=== PATIENT | female | born 1995 | race Two or more races ===

== ENCOUNTER 2016-10-28 09:12 | Inpatient (IN) | payer MEDICAID ==
[~2016-10-28] VITALS: Ht 162.6 cm; Wt 81.6 kg
[2016-10-28] VITALS (8 sets, daily range): BP systolic 112–134; BP diastolic 70–85
[~2016-10-28 09:12] MED LIST: ACETAMINOPHEN-1 EAC1 ORAL; AMOXICILLIN500 MG ORAL; AUGMENTIN 875-1 EAC1 ORAL; IBUPROFEN600 MG ORAL; NEXAFED30 MG ORAL; PERMETHRIN60 GM TOPIC
[2016-10-28 10:19] LABS: APPEARANCE,URINE SLIGHTLY CLOUDY; KETONES,URINE NEGATIVE (NEGATIVE); LEUKOCYTE ESTERASE ,URINE 1+ (NEGATIVE); NITRITE,URINE NEGATIVE (NEGATIVE); PH,URINE 6 (4.5-8.0); PROTEIN,URINE NEGATIVE (NEGATIVE); UROBILINOGEN,URINE NORMAL MG/DL (0.0-1.0)
[2016-10-28] MEDS ORDERED: Ketorolac 30mg Inj IV ONE (10:30)
[2016-10-28] MEDS ORDERED: Morphine Sulfate 4mg/ml Inj IVP ONE ×3 (10:30→16:15)
[2016-10-28 10:31] LABS: BACTERIA,URINE FEW /HPF; SQUAMOUS EPITHELIAL CELL,UR FEW /LPF (NONE/OCC)
[2016-10-28 10:39] LABS: MEAN CORPUSCULAR HGB CONC 33.2 G/DL (32.0-36.0); MEAN CORPUSCULAR VOLUME 87 FL (80-99); MEAN PLATELET VOLUME 6.2 FL (6.5-10.1); PLATELET COUNT 403 K/UL (150-450); RED BLOOD COUNT 4.38 M/UL (4.20-5.40); RED CELL DISTRIBUTION WIDTH 10.7 % (11.6-14.8); WHITE BLOOD COUNT 18.7 K/UL (4.8-10.8)
--- NOTE | 2016-10-28 10:39 | Emergency Room Report ---
History of Present Illness General Chief Complaint: Pain Source: Patient Present Illness HPI 21 YOF with 2-3 days left sided intermittent spastic pain. History of kidney stones. Denies fever/chills, urinary complaints, fever/chills. States was at outside ER yesterday, had CTAP, labwork, was told she has "two" stones and that "they would pass." Took Rx [place] at home but not much relief in pain. has been taking Abx for "UTI" 4x a d ay but vomited it up, thinks it is keflex. Allergies: Coded Allergies: No Known Allergies (Unverified , 01/22/16) Patient History Past Medical History: none Past Surgical History: none Pertinent Family History: none Social History: Denies: alcohol use, drug use, smoking Last Menstrual Period: 10/15/16 Now: No : 0 Para: 0 Immunizations: UTD Reviewed Nursing Documentation: PMH: Agreed, PSxH: Agreed Nursing Documentation-PMH Past Medical History: No History, Except For Review of Systems All Other Systems: negative except mentioned in HPI Physical Exam Vital Signs Date Time Temp Pulse Resp B/P Pulse Ox O2 Delivery O2 Flow Rate FiO2 10/28/16 09:23 98.1 97 22 120/80 96 Room Air Sp02 EP Interpretation: reviewed, normal General Appearance: normal inspection, alert, GCS 15, non-toxic, mild distress Head: normocephalic, atraumatic Eyes: bilateral eye EOMI, bilateral eye PERRL ENT: normal ENT inspection, hearing grossly normal, normal voice Neck: normal inspection, full range of motion, supple, no bony tend Respiratory: normal inspection, lungs clear, normal breath sounds, no respiratory distress, no retraction, no wheezing Cardiovascular #1: regular rate, rhythm, no edema Gastrointestinal: normal inspection, normal bowel sounds, soft, no guarding, no hernia, other - Mild left sided abd ttp Genitourinary: CVA tenderness (L) Musculoskeletal: normal inspection, back normal, normal range of motion, Glo' s Sign negative Neurologic: normal inspection, alert, oriented x3, responsive, boom worker III-XII nml as tested, motor strength/tone normal, speech normal Psychiatric: normal inspection, judgement/insight normal, mood/affect normal Skin: normal inspection, normal color, no rash Medical Decision Making Diagnostic Impression: Primary Impression: Left sided abdominal pain Additional Impressions: EUNICE (acute kidney injury) Pyelonephritis ER Course Labs: Leuks 18. EUNICE. UA +LE. Ultrasound shows mild left hydro. Distended bladder. No jets seen. Could not get official read from inhouse Radiologist as reportedly had left at noon. Patient feels better s/p IV toradol/morphine States she urinated but only small amount I am really trying to avoid another CT as patient is young female in reproductive years; she herself does not want another CT scan Feels better but still in pain Nauseated so likely to unable to tolerate PO Abx at home and already failed Abx PO at home Patient ok for admission Endorsed to Dr Townsend at 227pm for med surg Last Vital Signs Date Time Temp Pulse Resp B/P Pulse Ox O2 Delivery O2 Flow Rate FiO2 10/28/16 09:23 98.1 97 22 120/80 96 Room Air Disposition: ADMITTED INPATIENT Condition: Serious Referrals: ZOEY PIERCE,REFERRING (PCP) VALERIA JIMENEZ M.D. Oct 28, 2016 10:39
[2016-10-28] MEDS ORDERED: cefTRIAXone 1 GM in NS 55 ML IVPB ONE (10:45)
[2016-10-28 10:48] LABS: ALBUMIN/GLOBULIN RATIO 1.3 (1.0-2.7); CALCIUM 9.2 mg/dL (8.6-10.2); CREATININE 1.5 mg/dL (0.5-0.9); GLOMERULAR FILTRATION RATE 44.3 mL/min (>60); TOTAL PROTEIN 6.7 g/dL (6.6-8.7)
[2016-10-28] MEDS ORDERED: NS 55 ML IV ONE (11:06)
[2016-10-28 11:12] LABS: BAND NEUTROPHILS % (MANUAL) 0 % (0-8); BASOPHILS % (MANUAL) 0 % (0-2); EOSINOPHILS % (MANUAL) 0 % (0-3); LYMPHOCYTES % (MANUAL) 4 % (20-45); NEUTROPHILS % (MANUAL) 87 % (45-75); PLATELET ESTIMATE ADEQUATE; PLATELET MORPHOLOGY NORMAL; TOTAL CELLS COUNTED 100
[2016-10-28] MEDS: Tamsulosin 0.4mg cap ORAL SCH (12:40)
[2016-10-28] MEDS ORDERED: TAMSULOSIN HCL0.4 MG ORAL (13:18)
[2016-10-28] MEDS ORDERED: NORCO 5-325 TA1 EAC1 ORAL (13:18)
[2016-10-28] MEDS ORDERED: CEPHALEXIN500 MG ORAL (13:18)
[2016-10-28] MEDS ORDERED: Norco 5mg/325mg tab ORAL PRN (20:30)
[2016-10-28] MEDS: Morphine Sulfate 2mg/ml Inj IVP PRN (21:54)
[2016-10-28] MEDS: D5 1/2NS 1,000 ML IV SCH (22:31)
[2016-10-28] MEDS: Heparin 5000 units/ml inj SUBQ SCH (22:33)
[2016-10-29] VITALS: BP 112/64
[2016-10-29] MEDS: Morphine Sulfate 2mg/ml Inj IVP PRN ×5 (02:05→20:02)
[2016-10-29 04:00] VITALS: BP 112/69
--- NOTE | 2016-10-29 06:39 | Consultation ---
DATE OF CONSULTATION: UROLOGY CONSULTATION: REASON FOR CONSULTATION: The patient is a 21-year-old female with left bobbi pain, found to have two left ureteral calculi. The CAT scan report from the previous CAT scan she had at [facility]. She is currently being admitted for symptomatic treatment. The patient has no history of previous stones. PAST MEDICAL HISTORY: The patient does not give any significant past medical history. PHYSICAL EXAMINATION: GENERAL: The patient is currently afebrile. VITAL SIGNS: Stable. ABDOMEN: Soft and nontender. BACK: No CVA tenderness. GENITOURINARY: Bladder is nontender. ASSESSMENT: My assessment of the patient is that the report of the CAT scan has two left ureteral calculi 2 mm in size and the patient needs admission for pain control. My recommendation is that this patient should be able to pass the stone that is symptomatic and should receive intravenous fluids as well as Flomax. As long as the patient is feeling better, the patient will be able to be treated as an outpatient and will likely not need any intervention while she is in the hospital. Justus Camacho DR: Geronimo JOB#: [id number] CC:
[2016-10-29 07:42] LABS: BASOPHILS % (AUTO) 0.5 % (0.0-2.0); EOSINOPHILS % (AUTO) 0.3 % (0.0-3.0); LYMPHOCYTES % (AUTO) 12.1 % (20.0-45.0); MEAN CORPUSCULAR HEMOGLOBIN 29.4 PG (27.0-31.0); MEAN CORPUSCULAR HGB CONC 33.7 G/DL (32.0-36.0); MEAN CORPUSCULAR VOLUME 87 FL (80-99); MEAN PLATELET VOLUME 6.2 FL (6.5-10.1); MONOCYTES % (AUTO) 7.3 % (1.0-10.0); NEUTROPHILS % (AUTO) 79.8 % (45.0-75.0); PLATELET COUNT 351 K/UL (150-450); RED CELL DISTRIBUTION WIDTH 11.1 % (11.6-14.8); WHITE BLOOD COUNT 14.6 K/UL (4.8-10.8)
[2016-10-29 07:54] LABS: CALCIUM 8.9 mg/dL (8.6-10.2); CREATININE 1.5 mg/dL (0.5-0.9); GLOMERULAR FILTRATION RATE 44.3 mL/min (>60); POTASSIUM 3.6 mEQ/L (3.4-4.9)
[2016-10-29 08:00] VITALS: BP 115/77
[2016-10-29] MEDS: Heparin 5000 units/ml inj SUBQ SCH ×2 (08:48→20:10)
--- NOTE | 2016-10-29 10:24 | Diagnostic Imaging Report ---
Indication:Abdominal pain Technique: Grayscale and duplex Doppler imaging of the abdomen performed. Comparison: None Findings: Echogenic foci noted in the liver suspicious for pneumobilia. The main portal vein is patent. Gallbladder is unremarkable. The pancreas is not seen. No biliary ductal dilatation is identified. There is a trace amount of ascites present. The right kidney appears unremarkable. CBD is 4 mm. Aorta is normal caliber as visualized. Spleen is normal in size. There is mild left hydronephrosis. There is a probable stone in the upper pole calyx of the left kidney. The urinary bladder is unremarkable. Impression: Probable stone in the upper pole left kidney nonobstructive. Mild left hydronephrosis is present which may be further evaluated with noncontrast CT. Pneumobilia suspected. Trace ascites
[2016-10-29] MEDS: cefTRIAXone 1 GM in D5W 55 ML IVPB SCH (11:18)
[2016-10-29 12:00] VITALS: BP 111/70
[2016-10-29] MEDS: Tamsulosin 0.4mg cap ORAL SCH (12:19)
[2016-10-29] MEDS: D5 1/2NS 1,000 ML IV SCH ×2 (13:10→20:02)
--- NOTE | 2016-10-29 13:50 | Urology Progress Note ---
Assessment/Plan Status: stable Assessment/Plan 21 yo female with renal colic, second episode. seems to have been undereducated. Ureteral stone is highly likely to pass, but patient needs to hydrate and take pain medication liberally. Patient assumed stones would pass in a few days since last ER visit, educated patient it could take up to 4 weeks. Needs to continue to hydrate and take pain medication and flomax liberally. Ultrasound unconcerning for minimal hydro. 1. liberal hydration 2. Flomax 0.4 mg x 1 month 2. Pain medication PO prn 3. strain urine 4. ok for discharge if able to eat and drink today Subjective Date patient seen: Oct 29, 2016 Time patient seen: 13:48 ROS Limited/Unobtainable: No Constitutional: Denies: chills, diaphoresis, fever, malaise, no symptoms, other , weakness HEENT: Denies: blurred vision, double vision, ear discharge, ear pain, eye pain , mouth pain, mouth swelling, no symptoms, nose congestion, nose pain, other, tearing, throat pain, throat swelling Cardiovascular: Denies: chest pain, edema, irregular heart rate, lightheadedness, no symptoms, other, palpitations, syncope Respiratory: Denies: SOB at rest, SOB with excertion, cough, no symptoms, orthopnea, other, shortness of breath, sputum, stridor, wheezing Gastrointestinal/Abdominal: Denies: abdomen distended, abdominal pain, black stools, blood in stool, constipated, diarrhea, difficulty swallowing, nausea, no symptoms, other, poor appetite, poor fluid intake, rectal bleeding, tarry stools, vomiting Genitourinary: Denies: burning, discharge, flank pain, frequency, hematuria, incontinence, no symptoms, other, pain, urgency Neurologic/Psychiatric: Denies: anxiety, depressed, emotional problems, headache, no symptoms, numbness, other, paresthesia, pre-existing deficit, seizure, tingling, tremors, weakness Endocrine: Denies: excessive sweating, flushing, increased hunger, increased thirst, increased urine, intolerance to cold, intolerance to heat, no symptoms, other, unexplained weight gain, unexplained weight loss Hematologic/Lymphatic: Denies: anemia, easy bleeding, easy bruising, no symptoms, other Allergies: Coded Allergies: No Known Allergies (Unverified , 01/22/16) Subjective feeling better. able to drink today. pain is better. Objective Last 24 Hour Vital Signs Date Time Temp Pulse Resp B/P Pulse Ox O2 Delivery O2 Flow Rate FiO2 10/29/16 12:00 97.9 91 18 111/70 100 Room Air 10/29/16 11:49 96.6 10/29/16 08:00 96.6 86 18 115/77 98 Room Air 10/29/16 04:00 98.9 90 19 112/69 100 Room Air 10/29/16 00:00 99.1 100 18 112/64 97 Room Air 10/28/16 22:56 98.1 10/28/16 20:00 100.2 116 16 115/70 98 Room Air 10/28/16 19:33 98.0 122 22 134/80 99 Room Air 10/28/16 19:32 98.0 99 21 130/79 99 Room Air 10/28/16 17:01 98.0 122 22 134/80 99 Room Air 10/28/16 16:36 98.0 10/28/16 15:00 99 30 131/82 99 Room Air 10/28/16 14:00 104 28 112/74 100 Room Air Intake and Output 10/28/16 10/29/16 19:00 07:00 Intake Total 1050 ml 1140 ml Balance 1050 ml 1140 ml Intake Oral 600 ml IV Total 1050 ml 540 ml # Voids 1 4 Laboratory Tests 10/29/16 06:30: White Blood Count 14.6H, Red Blood Count 4.00L, Hemoglobin 11.8L, Hematocrit 34.9L, Mean Corpuscular Volume 87, Mean Corpuscular Hemoglobin 29.4, Mean Corpuscular Hemoglobin Concent 33.7, Red Cell Distribution Width 11.1L, Platelet Count 351, Mean Platelet Volume 6.2L, Neutrophils (%) (Auto) 79.8H, Lymphocytes (%) (Auto) 12.1L, Monocytes (%) (Auto) 7.3, Eosinophils (%) (Auto) 0.3, Basophils (%) (Auto) 0.5, Sodium Level 139, Potassium Level 3.6, Chloride Level 99, Carbon Dioxide Level 26, Anion Gap 14, Blood Urea Nitrogen 13, Creatinine 1.5H, Estimat Glomerular Filtration Rate 44.3, Glucose Level 99, Calcium Level 8.9 Height (Feet): 5 Height (Inches): 4.00 Weight (Pounds): 180 General Appearance: no apparent distress Respiratory/Chest: lungs clear Abdomen: soft Bryson Fischer M.D. Oct 29, 2016 13:50
[2016-10-29 16:00] VITALS: BP 102/67
[2016-10-29] MEDS ORDERED: D5 1/2NS 1000ml IV ONE (16:56)
[2016-10-29 20:00] VITALS: BP 128/78
--- NOTE | 2016-10-29 21:08 | History and Physical Report ---
DATE OF ADMISSION: 10/28/2016 CHIEF COMPLAINT: Left flank pain. HISTORY OF PRESENT ILLNESS: This is a 21-year-old female, who presented to [place] emergency department complaining of left flank pain several days starting before presentation to the emergency department. The patient states she has history of kidney stones. PAST MEDICAL HISTORY: As mentioned, history of kidney stones. MEDICATIONS: None. ALLERGIES: No known allergies. FAMILY HISTORY: Unremarkable. SOCIAL HISTORY: She is nonsmoker and nondrinker. There is no history of illicit drug abuse. REVIEW OF SYSTEMS: HEENT: Hearing and eyesight are normal. Endocrine: She denies diabetes, thyroid, and adrenal problems. Respiratory: She denies shortness of breath, cough, or hemoptysis. Cardiovascular: She denies chest pain or palpitations. Gastrointestinal: No history of hematochezia, melena, hematemesis, diarrhea, or constipation. Genitourinary: She denies dysuria, frequency, or hematuria. Neurologic: No history of stroke, syncope, or Parkinson disease. PHYSICAL EXAMINATION: GENERAL: This is a young female, who is in no acute distress. VITAL SIGNS: Blood pressure is 111/70, pulse 91 and regular, respirations 20, and temperature 97.1 degrees. HEENT: The head is normocephalic and atraumatic. Pupils are equal, round, and reactive to light and accommodation consensually. NECK: Supple. Trachea midline. There was no lymphadenopathy or thyromegaly. LUNGS: Clear to auscultation and percussion. HEART: Regular rate and rhythm without rubs, murmurs, or gallops. ABDOMEN: Soft. Bowel sounds were active. EXTREMITIES: No clubbing, cyanosis, or edema. NEUROLOGIC: She is alert and oriented x4. Cranial nerves II through XII are intact. LABORATORY AND ANCILLARY DATA: On admission, CBC was 18,700, today 40,600. Serum chemistry, creatinine 1.5 yesterday and today. Urinalysis 2 to 4 RBCs. Abdominal ultrasound shows probable stone in the upper left pole of the kidney and nonobstructive mild left hydronephrosis. ASSESSMENT: Left renal colic. PLAN: 1. Pain control. 2. IV fluids. Virgen Major M.D. DR: ANYA JOB#: [id number] CC:
[2016-10-29] MEDS ORDERED: Zolpidem 5mg tab ORAL PRN (22:30)
[2016-10-30] VITALS: BP 111/65
[2016-10-30 04:00] VITALS: BP_SYST 104; BP_SYST 113; BP_DIAS 57; BP_DIAS 66
[2016-10-30 08:49] VITALS: BP 99/61
[2016-10-30] MEDS: Heparin 5000 units/ml inj SUBQ SCH ×2 (09:32→21:43)
[2016-10-30] MEDS: Tamsulosin 0.4mg cap ORAL SCH (11:12)
[2016-10-30] MEDS: cefTRIAXone 1 GM in D5W 55 ML IVPB SCH (11:12)
[2016-10-30 11:37] VITALS: BP 130/77
--- NOTE | 2016-10-30 14:36 | Nephrology Progress Note ---
Assessment/Plan Plan Acute Pyelo - IV Abx Renal Colic -IVF, Pain Control Check Labs tomorrow. Subjective Subjective Less Flank Pain Objective Objective Last 24 Hour Vital Signs Date Time Temp Pulse Resp B/P Pulse Ox O2 Delivery O2 Flow Rate FiO2 10/30/16 11:37 98.1 89 15 130/77 99 Room Air 10/30/16 08:49 97.0 84 15 99/61 98 Room Air 10/30/16 04:00 97.9 90 18 113/66 97 Room Air 10/30/16 00:00 97.7 82 17 111/65 96 Room Air 10/29/16 20:32 97.9 10/29/16 20:00 98.2 94 18 128/78 97 Room Air 10/29/16 16:00 98.1 98 18 102/67 98 Room Air Intake and Output 10/29/16 10/30/16 19:00 07:00 Intake Total 1115 ml 1000 ml Balance 1115 ml 1000 ml Intake Oral 640 ml 480 ml IV Total 475 ml 520 ml # Voids 3 7 Height (Feet): 5 Height (Inches): 4.00 Weight (Pounds): 180 Objective Cv RR Lungs CTA Abd SNT. BS+ No CV tenderness E no CCE RAVINDER POE Oct 30, 2016 14:36
[2016-10-30 20:00] VITALS: BP 125/46
[2016-10-30] MEDS: Norco 5mg/325mg tab ORAL PRN (21:42)
[2016-10-30] MEDS: D5 1/2NS 1,000 ML IV SCH (22:30)
[2016-10-31] VITALS: BP 118/76
[2016-10-31] MEDS: Norco 5mg/325mg tab ORAL PRN ×4 (01:45→20:47)
[2016-10-31 02:32] LABS: KETONES,URINE 3+ (NEGATIVE); LEUKOCYTE ESTERASE ,URINE 3+ (NEGATIVE); NITRITE,URINE NEGATIVE (NEGATIVE); PH,URINE 6 (4.5-8.0); PROTEIN,URINE NEGATIVE (NEGATIVE); UROBILINOGEN,URINE NORMAL MG/DL (0.0-1.0)
[2016-10-31 02:34] LABS: APPEARANCE,URINE SLIGHTLY CLOUDY
[2016-10-31 04:00] VITALS: BP 116/77
[2016-10-31 04:55] LABS: BACTERIA,URINE FEW /HPF; MUCUS,URINE FEW /LPF (NONE/OCC); SQUAMOUS EPITHELIAL CELL,UR MODERATE /LPF (NONE/OCC)
[2016-10-31 04:56] LABS: YEAST,URINE FEW /HPF
[2016-10-31 07:00] LABS: BASOPHILS % (AUTO) 0.4 % (0.0-2.0); EOSINOPHILS % (AUTO) 1.5 % (0.0-3.0); LYMPHOCYTES % (AUTO) 17.7 % (20.0-45.0); MEAN CORPUSCULAR HEMOGLOBIN 28.8 PG (27.0-31.0); MEAN CORPUSCULAR VOLUME 87 FL (80-99); MEAN PLATELET VOLUME 5.8 FL (6.5-10.1); MONOCYTES % (AUTO) 9.3 % (1.0-10.0); NEUTROPHILS % (AUTO) 71.1 % (45.0-75.0); PLATELET COUNT 421 K/UL (150-450); RED BLOOD COUNT 3.92 M/UL (4.20-5.40); RED CELL DISTRIBUTION WIDTH 10.7 % (11.6-14.8); WHITE BLOOD COUNT 11.4 K/UL (4.8-10.8)
[2016-10-31 07:18] LABS: ALBUMIN/GLOBULIN RATIO 1.2 (1.0-2.7); CALCIUM 9.7 mg/dL (8.6-10.2); CREATININE 1.3 mg/dL (0.5-0.9); GLOMERULAR FILTRATION RATE 52.2 mL/min (>60); POTASSIUM 4.2 mEQ/L (3.4-4.9); TOTAL PROTEIN 6.9 g/dL (6.6-8.7); URIC ACID 9.3 mg/dL (3.0-7.5)
[2016-10-31 08:34] VITALS: BP 122/73
[2016-10-31] MEDS: cefTRIAXone 1 GM in D5W 55 ML IVPB SCH (10:09)
[2016-10-31] MEDS: Heparin 5000 units/ml inj SUBQ SCH ×2 (10:11→20:48)
--- NOTE | 2016-10-31 10:46 | Diagnostic Imaging Report ---
Indication:Flank pain. Technique: Grayscale and duplex Doppler imaging of the kidneys performed. Comparison: Ultrasound abdomen 10/28/16 Findings: There is mild persistent left hydronephrosis. Consider evaluation with CT. The cause of the hydronephrosis is not elucidated on the current study. There is at least one nonobstructive stone demonstrated in the left kidney measuring about 9 mm. Renal contour, size, cortical echogenicity are normal I laterally. The right kidney and left kidney both measure between 11 and 12 CM in length. IVC and urinary bladder appear unremarkable. Impression: Persistent mild left hydronephrosis. Distal ureteral calculus could be present and it may be evaluated for with noncontrast CT. Nonobstructive stone in the left kidney also noted.
[2016-10-31 11:54] VITALS: BP 100/57
--- NOTE | 2016-10-31 14:57 | Nephrology Progress Note ---
Assessment/Plan Plan Acute Pyelo - IV Abx Renal Colic -IVF, Pain Control. Still has obstructive Sone (s) Patient with abnormal kidney function, needs retrograde +cysto. Capitated to [facility]? Transfer to [facility]. Subjective Subjective Still has Flank Pain Objective Objective Last 24 Hour Vital Signs Date Time Temp Pulse Resp B/P Pulse Ox O2 Delivery O2 Flow Rate FiO2 10/31/16 11:54 97.6 72 19 100/57 98 Room Air 10/31/16 08:34 97.7 68 19 122/73 99 Room Air 10/31/16 04:00 97.7 81 17 116/77 98 Room Air 10/31/16 00:00 97.3 77 18 118/76 97 Room Air 10/30/16 22:14 98.1 10/30/16 20:00 97.7 89 18 125/46 98 Room Air 10/30/16 16:48 98.1 Intake and Output 10/30/16 10/31/16 19:00 07:00 Intake Total 1195 ml 1280 ml Output Total 400 ml 300 ml Balance 795 ml 980 ml Intake Oral 900 ml 980 ml IV Total 295 ml 300 ml Output Urine Total 400 ml 300 ml # Voids 4 Laboratory Tests 10/31/16 02:10: Urine Color Yellow, Urine Appearance Slightly cloudy, Urine pH 6, Urine Specific [place] 1.015, Urine Protein Negative, Urine Glucose (UA) Negative, Urine Ketones 3+H, Urine Occult Blood 4+H, Urine Nitrite Negative, Urine Bilirubin Negative, Urine Urobilinogen Normal, Urine Leukocyte Esterase 3+H, Urine RBC 5-10H, Urine WBC 5-10H, Urine Squamous Epithelial Cells ModerateH, Urine Bacteria Few, Urine Mucus FewH, Urine Yeast FewH 10/31/16 05:55: White Blood Count 11.4H, Red Blood Count 3.92L, Hemoglobin 11.3L, Hematocrit 34.1L, Mean Corpuscular Volume 87, Mean Corpuscular Hemoglobin 28.8, Mean Corpuscular Hemoglobin Concent 33.0, Red Cell Distribution Width 10.7L, Platelet Count 421, Mean Platelet Volume 5.8L, Neutrophils (%) (Auto) 71.1, Lymphocytes (%) (Auto) 17.7L, Monocytes (%) (Auto) 9.3, Eosinophils (%) (Auto) 1.5, Basophils (%) (Auto) 0.4, Sodium Level 137, Potassium Level 4.2, Chloride Level 96L, Carbon Dioxide Level 27, Anion Gap 14, Blood Urea Nitrogen 10, Creatinine 1.3H, Estimat Glomerular Filtration Rate 52.2, Glucose Level 87, Uric Acid 9.3H, Calcium Level 9.7, Total Bilirubin 0.3, Aspartate Amino Transf ( AST/SGOT) 13, Alanine Aminotransferase (ALT/SGPT) 12, Alkaline Phosphatase 74, Total Protein 6.9, Albumin 3.8, Globulin 3.1, Albumin/Globulin Ratio 1.2 Height (Feet): 5 Height (Inches): 4.00 Weight (Pounds): 180 Objective Cv RR Lungs CTA Abd SNT. BS+ No CV tenderness E no CCE RAVINDER POE Oct 31, 2016 14:57
[2016-10-31 15:59] VITALS: BP 124/79
[2016-10-31] MEDS: D5 1/2NS 1,000 ML IV SCH (16:12)
[2016-10-31 19:00] VITALS: BP 118/79
[2016-11-01] VITALS: BP 107/68
[2016-11-01 04:00] VITALS: BP 118/72
[2016-11-01] MEDS: D5 1/2NS 1,000 ML IV SCH ×2 (07:50→12:09)
[2016-11-01 08:16] VITALS: BP 121/72
[2016-11-01] MEDS: Heparin 5000 units/ml inj SUBQ SCH (08:52)
[2016-11-01 12:15] VITALS: BP 121/76
[2016-11-01] MEDS: cefTRIAXone 1 GM in D5W 55 ML IVPB SCH (12:18)
[2016-11-01 16:00] VITALS: BP 122/79
[2016-11-01] MEDS: Norco 5mg/325mg tab ORAL PRN (16:08)
[2016-11-01] MEDS ORDERED: D5 1/2NS 1000ml IV ONE (16:44)
--- NOTE | 2016-11-02 14:29 | Discharge Summary ---
Discharge Summary Hospital Course Date of Admission Oct 28, 2016 at 14:17 Date of Discharge Nov 01, 2016 at 16:45 Admitting Diagnosis Pyelonephritis, Kidney Stone HPI Brigette Cartwright is a 21 year old female who was admitted on Oct 28, 2016 at 14:17 for Pyelonephrities, Kidney Stones Hospital Course [id number] Discharge Discharge Disposition Patient was discharged to Acute Care Facility(02) Discharge Diagnoses: Svitlana El NP Nov 02, 2016 14:29
--- NOTE | 2016-11-03 01:28 | Discharge Summary 2 SIG ---
DATE OF ADMISSION: 10/28/2016 DATE OF DISCHARGE: 11/01/2016 TOUR PRODUCTION SUPERVISOR: Bryson Fischer M.D. BRIEF HOSPITAL COURSE: The patient is a 21-year-old female, who presented to [place] complaining of left flank pain that started several days and states that she has a history of kidney stones. On admission, creatinine was 1.5. An abdominal ultrasound showed probable stone in the upper left pole of the kidney with a nonobstructive mild left hydronephrosis . She was admitted for IV hydration and pain control. She was seen by Urology. CAT scan imaging showed two left ureteral calculi 2 mm in size. The patient may be able to pass the stone with IV hydration and Flomax and educated it could take up to 4 weeks. Need to continue with hydration and pain medication and Flomax liberally. She was eventually advised need for retrograde cystoscopy and was transferred to a [facility]. FINAL DIAGNOSES: 1. Acute pyelonephritis. 2. Renal colic. 3. Obstructive kidney stone. Virgen Major M.D. I have been assigned to dictate discharge summary on this account and I was not involved in the patient's management. Svitlana El N.P. DR: SHAAN JOB#: [id number] CC: RONALD
== END 2016-11-01 16:45 | disposition short-term general hospital (02) | DRG 463 ==
LOC: EMR 10:07 → 4E 14:17 → EDBEDREQ 19:06 → 4E 10-29 19:43
DX: N10 Acute pyelonephritis (principal); N20.1 Calculus of ureter
CPT/HCPCS: 36415; 76700; 76775; 80048; 80053; 81001; 81003; 81025; 83690; 84550; 85007; 85025; 87086; J2405

== ENCOUNTER 2019-11-01 03:48 | Emergency (ER) | payer MEDICAID ==
[~2019-11-01] VITALS: Ht 167.6 cm; Wt 85.7 kg
[~2019-11-01 03:48] MED LIST changes: +CEPHALEXIN500 MG ORAL; +NORCO 5-325 TA1 EAC1 ORAL; +TAMSULOSIN HCL0.4 MG ORAL
[2019-11-01 04:00] VITALS: BP 104/56
--- NOTE | 2019-11-01 04:04 | NUR ---
ER Nurse Note: Pt walked in c/o LT chest pain that radiates to her LT arm since 10/31. Pt denies cardiac hx. Pt denies trauma but admited to heavy lifting. Pt stated 10/10 sharp pain. Pt stated nausea. Will continue to monitor.
--- NOTE | 2019-11-01 04:11 | Emergency Room Report ---
History of Present Illness General Chief Complaint: Chest Pain Source: Patient Present Illness HPI 24-year-old female with no past medical history. She presents with complaint of chest pain. Pain is left-sided. Onset 2 days ago. She said she had some pain at night. And when she woke up it was more painful. Pain to the left side going down the left arm. Worse with movement. Worse with inspiration. No fever or chills. [place] nauseous. Movement made it worse. Rest made it better. Denies exertional component. Denies any diaphoresis. No shortness of breath. No calf tenderness. Not take anything for it. No control. No family history of DVT. Pain is 8 out of 10. Allergies: Coded Allergies: No Known Allergies (Unverified , 01/22/16) Patient History Past Medical History: none, see triage record, old chart reviewed Past Surgical History: none Pertinent Family History: none Social History: Denies: smoking Last Menstrual Period: 09/23/2019 Now: No Immunizations: other Reviewed Nursing Documentation: PMH: Agreed; PSxH: Agreed Nursing Documentation-PMH Past Medical History: No Stated History Hx Cardiac Problems: No Hx Cancer: No Hx Gastrointestinal Problems: No Hx Neurological Problems: No Review of Systems Eye: Denies: eye pain, blurred vision ENT: Denies: ear pain, nose congestion, throat swelling Respiratory: Denies: cough, shortness of breath Cardiovascular: Reports: chest pain; Denies: palpitations Gastrointestinal: Denies: abdominal pain, diarrhea, nausea, vomiting Musculoskeletal: Denies: back pain, joint pain Skin: Denies: rash Neurological: Denies: headache, numbness Endocrine: Denies: increased thirst, increased urine Hematologic/Lymphatic: Denies: easy bruising All Other Systems: negative except mentioned in HPI Physical Exam Vital Signs Date Time Temp Pulse Resp B/P (MAP) Pulse Ox O2 Delivery O2 Flow Rate FiO2 11/01/19 03:51 98.2 81 16 104/56 (72) 99 Room Air Vitals normal Sp02 EP Interpretation: reviewed, normal General Appearance: well appearing, no apparent distress, alert Head: normocephalic, atraumatic Eyes: bilateral eye PERRL, bilateral eye EOMI ENT: hearing grossly normal, normal pharynx Neck: full range of motion, supple, no meningismus Respiratory: chest non-tender, lungs clear, normal breath sounds, other - Pain with palpation of left chest Cardiovascular #1: regular rate, rhythm, no murmur Gastrointestinal: normal bowel sounds, non tender, no mass, no organomegaly, no bruit, non-distended Musculoskeletal: back normal, normal range of motion, gait/station normal Psychiatric: mood/affect normal Medical Decision Making Diagnostic Impression: Primary Impression: Chest pain Qualified Codes: R07.9 - Chest pain, unspecified ER Course pt presents with cp for 2 days. pain is reproducible and worse with movement. EKG normal and trop neg. There was a problem with lab being unable to run DDimer. Therefore CT chest was done. result pending. If neg, will dc home. No e/ o ACS, dissection, pneumonia to name a few. EKG Diagnostic Results Rate: normal Rhythm: NSR ST Segments: no acute changes Rhythm Strip Diag. Results EP Interpretation: yes Rate: 70 Rhythm: NSR, no PVC's, no ectopy Chest X-Ray Diagnostic Results Chest X-Ray Diagnostic Results : Chest X-Ray Ordered: Yes # of Views/Limited/Complete: 1 View Indication: Chest Pain Interpretation: no consolidation, no effusion, no pneumothorax, no acute cardiopulmonary disease Impression: No acute disease Electronically Signed by: Tree Galdamez MD CT/MRI/US Diagnostic Results CT/MRI/US Diagnostic Results : Imaging Test Ordered: CT cheset Impression Read by radiologist. neg Last Vital Signs Date Time Temp Pulse Resp B/P (MAP) Pulse Ox O2 Delivery O2 Flow Rate FiO2 11/01/19 04:00 98.2 80 16 104/56 99 Room Air Status: improved Disposition: HOME, SELF-CARE Condition: Stable Scripts Ibuprofen* (MOTRIN*) 600 Mg Tablet 600 MG ORAL THREE TIMES A DAY, #30 TAB 0 Refills Prov: Tree Galdamez MD 11/01/19 Patient Instructions: Nonspecific Chest Pain Additional Instructions: Follow-up with your doctor in 7 days. Return if symptoms worsen. Tree Galdamez MD Nov 01, 2019 04:11
[2019-11-01] MEDS ORDERED: Ketorolac 30mg Inj IV ONE (04:15)
[2019-11-01 04:35] LABS: APPEARANCE,URINE CLEAR; BILIRUBIN, URINE NEGATIVE (NEGATIVE); COLOR,URINE PALE YELLOW; GLUCOSE, URINE (UA) NEGATIVE (NEGATIVE); HEMATOCRIT 38.3 % (37.0-47.0); HEMOGLOBIN 13.1 G/DL (12.0-16.0); KETONES,URINE NEGATIVE (NEGATIVE); LEUKOCYTE ESTERASE ,URINE NEGATIVE (NEGATIVE); LYMPHOCYTES % (AUTO) 28.2 % (20.0-45.0); MEAN CORPUSCULAR VOLUME 87 FL (80-99); MONOCYTES % (AUTO) 8.2 % (1.0-10.0); NEUTROPHILS % (AUTO) 60.6 % (45.0-75.0); NITRITE,URINE NEGATIVE (NEGATIVE); PH,URINE 5 (4.5-8.0); PLATELET COUNT 367 K/UL (150-450); PROTEIN,URINE NEGATIVE (NEGATIVE); RED BLOOD COUNT 4.41 M/UL (4.20-5.40); RED CELL DISTRIBUTION WIDTH 10.9 % (11.6-14.8); UROBILINOGEN,URINE NORMAL MG/DL (0.0-1.0); WHITE BLOOD COUNT 11.6 K/UL (4.8-10.8)
[2019-11-01 04:44] LABS: ANION GAP 12 mmol/L (5-15); BLOOD UREA NITROGEN 14 mg/dL (7-18); CALCIUM 9.2 MG/DL (8.5-10.1); CARBON DIOXIDE 25 MMOL/L (21-32); CHLORIDE 106 MMOL/L (98-107); CREATININE 0.7 MG/DL (0.55-1.30); POTASSIUM 4.2 MMOL/L (3.5-5.1); SODIUM 143 MMOL/L (136-145)
--- NOTE | 2019-11-01 05:07 | Diagnostic Imaging Report ---
EXAM: XR Chest, 1 View CLINICAL HISTORY: CP TECHNIQUE: Frontal view of the chest. COMPARISON: No relevant prior studies available. FINDINGS: Lungs: Unremarkable. No consolidation. Pleural space: Unremarkable. No pneumothorax. Heart: Unremarkable. No cardiomegaly. Mediastinum: Unremarkable. Bones/joints: Unremarkable. IMPRESSION: Normal chest x-ray.
[2019-11-01] MEDS ORDERED: Omnipaque 350 100ml vial INJ PRN (05:30)
[2019-11-01 05:46] VITALS: BP 101/60
--- NOTE | 2019-11-01 05:55 | NUR ---
ER Nurse Note: All orders completed per ERMD orders. SLIV LT AC; patent. Blood and urine collected. Meds given; pt stated pain is 6/10; meds effective without reactions. Pt taken to CT. All safety measures met; will continue to montior.
[2019-11-01] MEDS ORDERED: IBUPROFEN600 MG ORAL (06:16)
[2019-11-01] MEDS ORDERED: Morphine Sulfate 4mg/ml Inj (IV USE ONLY) IVP ONE (06:30)
--- NOTE | 2019-11-01 06:36 | Diagnostic Imaging Report ---
EXAM: CT Angiography Chest With Intravenous Contrast CLINICAL HISTORY: CP TECHNIQUE: Axial computed tomographic angiography images of the chest with intravenous contrast using pulmonary embolism protocol. CTDI is 97.5 mGy and DLP is 246.5 mGy-cm. One or more of the following dose reduction techniques were used: automated exposure control, adjustment of the mA and/or kV according to patient size, use of iterative reconstruction technique. MIP reconstructed images were created and reviewed. COMPARISON: None. FINDINGS: Pulmonary arteries: Suboptimal exam for evaluation of pulmonary embolus due to poor opacification of the pulmonary arteries with contrast. Within the limits of the exam, enhancement of the aorta and vascular structures are normal. Aorta: No acute findings. No thoracic aortic aneurysm. Lungs: Unremarkable. No mass. No consolidation. Pleural space: Unremarkable. No significant effusion. No pneumothorax. Heart: Unremarkable. No cardiomegaly. No significant pericardial effusion. No evidence of RV dysfunction. Bones/joints: No acute fracture. No dislocation. Soft tissues: Unremarkable. Lymph nodes: Unremarkable. No enlarged lymph nodes. IMPRESSION: 1. CT chest within normal limits. No acute process identified. 2. Limited exam for evaluation of pulmonary embolus as described.
[2019-11-01] MEDS ORDERED: Acetaminophen 500mg (ES) tab ORAL ONE (07:00)
[2019-11-01 07:02] VITALS: BP 106/68
[2019-11-01 07:10] VITALS: BP 106/68
--- NOTE | 2019-11-01 07:10 | NUR ---
ED Nurse Note: Pt cleared by health care Provider for discharge. DC instructions/prescription was given and explained to pt and verbalized understanding of teachings. All medical deviecs such as ID band and IV removed. Pt is AAO x4, ambulatory and left with all personal belongings.
== END 2019-11-01 07:10 | disposition home or self-care (01) ==
LOC: EMR 04:11
DX: R07.9 Chest pain, unspecified (principal)
CPT/HCPCS: 36415; 71045; 71275; 80048; 81003; 81025; 84484; 85025; 85379; 93005; 96361; 96374; 96375; 96376; J1885; J2270; J2405; J7030; Q9967; Z7502; 99284

== ENCOUNTER 2019-11-03 23:02 | Emergency (ER) | payer MEDICAID ==
[~2019-11-03] VITALS: Ht 167.6 cm; Wt 85.7 kg
--- NOTE | 2019-11-03 23:17 | NUR ---
ED Nurse Note: pt ambulated to ED from home c/o 10/10 L arm pain tingling, denies trauma or injury. Pain has been intermittent for several weeks. ERMD at bedside, pt tachy at 150's, placed on cadd drafter
[2019-11-03] MEDS ORDERED: Ketorolac 30mg Inj IV ONE (23:30)
[2019-11-03 23:42] VITALS: BP 128/77
[2019-11-03 23:55] LABS: BASOPHILS % (AUTO) 0.9 % (0.0-2.0); EOSINOPHILS % (AUTO) 2.9 % (0.0-3.0); HEMATOCRIT 36.4 % (37.0-47.0); HEMOGLOBIN 12.9 G/DL (12.0-16.0); LYMPHOCYTES % (AUTO) 29.1 % (20.0-45.0); MEAN CORPUSCULAR VOLUME 85 FL (80-99); MONOCYTES % (AUTO) 9.8 % (1.0-10.0); NEUTROPHILS % (AUTO) 57.3 % (45.0-75.0); PLATELET COUNT 367 K/UL (150-450); RED BLOOD COUNT 4.28 M/UL (4.20-5.40); RED CELL DISTRIBUTION WIDTH 10.5 % (11.6-14.8); WHITE BLOOD COUNT 11.7 K/UL (4.8-10.8)
--- NOTE | 2019-11-04 00:07 | Emergency Room Report ---
History of Present Illness General Chief Complaint: Upper Extremity Injury Source: Patient Present Illness HPI Patient is a 24-year-old female presents after increased left-sided shoulder pain. Reports having pain worse with movement. Denies any recent trauma. Had previously been seen at this facility and had CT angiogram of the chest which did not show any evidence of intrathoracic pathology. Denies any fever. Denies any other locations of pain. No prior cardiac history. Allergies: Coded Allergies: No Known Allergies (Unverified , 01/22/16) Patient History Past Medical History: see triage record Past Surgical History: none Pertinent Family History: none Last Menstrual Period: 09/2019 Nursing Documentation-[facility] Hx Cardiac Problems: No Hx Cancer: No Hx Gastrointestinal Problems: No Hx Neurological Problems: No Review of Systems All Other Systems: negative except mentioned in HPI Physical Exam Vital Signs Date Time Temp Pulse Resp B/P (MAP) Pulse Ox O2 Delivery O2 Flow Rate FiO2 11/03/19 23:07 97.9 178 18 128/77 (94) 97 Room Air Sp02 EP Interpretation: reviewed, normal General Appearance: normal inspection, well appearing, no apparent distress, alert, GCS 15 Head: atraumatic ENT: normal ENT inspection, hearing grossly normal, normal voice Neck: normal inspection, full range of motion, supple, no bony tend Respiratory: normal inspection, lungs clear, normal breath sounds, no respiratory distress, no retraction, no wheezing Cardiovascular #1: regular rate, rhythm, no edema Gastrointestinal: normal inspection, normal bowel sounds, non tender, soft, no guarding, no hernia Genitourinary: no CVA tenderness Musculoskeletal: normal inspection, back normal, other - decreased ROM left shoulder, deltoid tenderness Neurologic: alert, motor strength/tone normal, event crew technician III-XII nml as tested, oriented x3, responsive, speech normal, normal inspection Psychiatric: normal inspection, judgement/insight normal, mood/affect normal Medical Decision Making Diagnostic Impression: Primary Impression: Bursitis ER Course Patient present for left shoulder pain. Differential diagnosis includes not limited to dislocation, fracture, subluxation, arthritis among others. Patient has a benign exam and does not appear to require any imaging or laboratory testing at this time. Patient was given IV fluids as well as IV Toradol. She was noted to have some improvement over time. Patient appears to be stable for outpatient management. Extremity appears to be warm and well perfused. Pulses are equal.Extremity showed no evidence of acute fracture. Patient a recent CT imaging which was noted to be negative. Does not have any erythema or significant warmth over the shoulder joint consistent with septic joint. The patient is advised to follow up with primary care doctor in 1-2 days. Patient is advised to return if any worsening condition or if any changes in status that are concerning. This report is dictated with [employer] derrick barge operator software which may occasionally lead to discrepancies related to use of this software. Labs Test 11/03/19 23:40 White Blood Count 11.7 K/UL (4.8-10.8) Red Blood Count 4.28 M/UL (4.20-5.40) Hemoglobin 12.9 G/DL (12.0-16.0) Hematocrit 36.4 % (37.0-47.0) Mean Corpuscular Volume 85 FL (80-99) Mean Corpuscular Hemoglobin 30.1 PG (27.0-31.0) Mean Corpuscular Hemoglobin Concent 35.3 G/DL (32.0-36.0) Red Cell Distribution Width 10.5 % (11.6-14.8) Platelet Count 367 K/UL (150-450) Mean Platelet Volume 5.2 FL (6.5-10.1) Neutrophils (%) (Auto) 57.3 % (45.0-75.0) Lymphocytes (%) (Auto) 29.1 % (20.0-45.0) Monocytes (%) (Auto) 9.8 % (1.0-10.0) Eosinophils (%) (Auto) 2.9 % (0.0-3.0) Basophils (%) (Auto) 0.9 % (0.0-2.0) Sodium Level 143 MMOL/L (136-145) Potassium Level 3.5 MMOL/L (3.5-5.1) Chloride Level 105 MMOL/L (98-107) Carbon Dioxide Level 27 MMOL/L (21-32) Anion Gap 11 mmol/L (5-15) Blood Urea Nitrogen 10 mg/dL (7-18) Creatinine 0.8 MG/DL (0.55-1.30) Estimat Glomerular Filtration Rate > 60 mL/min (>60) Glucose Level 90 MG/DL (74-106) Calcium Level 9.2 MG/DL (8.5-10.1) Total Bilirubin 0.2 MG/DL (0.2-1.0) Aspartate Amino Transf (AST/SGOT) 17 U/L (15-37) Alanine Aminotransferase (ALT/SGPT) 28 U/L (12-78) Alkaline Phosphatase 79 U/L (46-116) Troponin I 0.000 ng/mL (0.000-0.056) Total Protein 7.2 G/DL (6.4-8.2) Albumin 3.7 G/DL (3.4-5.0) Globulin 3.5 g/dL Albumin/Globulin Ratio 1.1 (1.0-2.7) Lipase 197 U/L (73-393) EKG Diagnostic Results Rate: normal Rhythm: NSR ST Segments: no acute changes Last Vital Signs Date Time Temp Pulse Resp B/P (MAP) Pulse Ox O2 Delivery O2 Flow Rate FiO2 11/03/19 23:42 97.9 96 18 128/77 97 Room Air Status: improved Disposition: HOME, SELF-CARE Condition: Stable Scripts Prednisone* (PREDNISONE*) 20 Mg Tablet 40 MG ORAL DAILY, #10 TAB Prov: Pedro Toussaint MD 11/04/19 Pedro Toussaint MD Nov 04, 2019 00:07
[2019-11-04 00:15] LABS: ANION GAP 11 mmol/L (5-15); BLOOD UREA NITROGEN 10 mg/dL (7-18); CALCIUM 9.2 MG/DL (8.5-10.1); CARBON DIOXIDE 27 MMOL/L (21-32); CHLORIDE 105 MMOL/L (98-107); CREATININE 0.8 MG/DL (0.55-1.30); POTASSIUM 3.5 MMOL/L (3.5-5.1); SODIUM 143 MMOL/L (136-145)
[2019-11-04 00:19] LABS: ALANINE AMINOTRANSFERASE 28 U/L (12-78); ALBUMIN 3.7 G/DL (3.4-5.0); ALBUMIN/GLOBULIN RATIO 1.1 (1.0-2.7); ALKALINE PHOSPHATASE 79 U/L (46-116); ASPARTATE AMINO TRANSFERASE 17 U/L (15-37); BILIRUBIN,TOTAL 0.2 MG/DL (0.2-1.0)
[2019-11-04] MEDS ORDERED: PREDNISONE20 MG ORAL (01:22)
--- NOTE | 2019-11-04 01:30 | NUR ---
ED Nurse Note: Pt resting in bed with eyes closed, non-labored breathing, pt states pain is lessened, will continue to monitor
[2019-11-04 02:00] VITALS: BP 128/77
--- NOTE | 2019-11-04 02:00 | NUR ---
ER DISCHARGE NOTE: Patient is cleared to be discharged per ERMD, pt is aox4, on room air, with stable vital signs. pt was given dc and prescription instructions, pt was able to verbalize understanding, pt id band and iv site removed without complications. pt is able to ambulate with steady gait. pt took all belongings.
--- NOTE | 2019-11-04 11:47 | Diagnostic Imaging Report ---
Indication: left shoulder pain Findings: 3 views of the left shoulder were obtained. Alignment of the left shoulder is normal. No acute fracture is identified. Soft tissues are unremarkable. Impression: No acute injury
--- NOTE | 2019-11-04 11:47 | Diagnostic Imaging Report ---
Indication: Dyspnea Comparison: 11/01/2019 A single view chest radiograph was obtained. Findings: Cardiomediastinal appearance is within normal limits for age. The lungs are clear. Pulmonary vascularity is appropriate. The diaphragmatic contour is smooth and costophrenic angles are sharp. No pleural effusions are identified. The bones are unremarkable. Impression: No acute findings
== END 2019-11-04 02:00 | disposition home or self-care (01) ==
LOC: EMR 23:59
DX: M71.9 Bursopathy, unspecified (principal)
CPT/HCPCS: 36415; 71045; 73030; 80053; 83690; 84484; 85025; 93005; 96361; 96374; J1885; J7030; J7512; Z7502; 99284

== ENCOUNTER 2019-12-09 00:35 | Emergency (ER) | payer MEDICAID ==
[~2019-12-09] VITALS: Ht 165.1 cm; Wt 83.0 kg
[~2019-12-09 00:35] MED LIST changes: +PREDNISONE20 MG ORAL
[2019-12-09 00:54] VITALS: BP 125/88
--- NOTE | 2019-12-09 00:54 | NUR ---
ED Nurse Note: Pt ambulated to ED from home c/o epigastric pain, R ear pain and headache x3days, denies cough, fever/congestion, pain is 9/10, pt states she thinks its anxiety. VSS. Pt is A&Ox4. Pt placed on nurse monitoring.
[2019-12-09] MEDS ORDERED: Lidocaine 2% Visc 15ml soln ORAL ONE (01:15)
[2019-12-09] MEDS ORDERED: Mylanta II UD 30ml ORAL ONE (01:15)
[2019-12-09] MEDS ORDERED: Dicyclomine HCl 10mg/5ml oral soln ORAL ONE (01:15)
[2019-12-09] MEDS ORDERED: AMOXICILLIN500 MG ORAL (01:23)
[2019-12-09] MEDS ORDERED: FAMOTIDINE20 MG ORAL (01:23)
[2019-12-09 01:50] VITALS: BP 122/79
--- NOTE | 2019-12-09 01:50 | NUR ---
ER DISCHARGE NOTE: Patient is cleared to be discharged per ERMD, pt is aox4, on room air, with stable vital signs. pt was given dc and prescription instructions, pt was able to verbalize understanding, pt id band removed. pt is able to ambulate with steady gait. pt took all belongings.
--- NOTE | 2019-12-09 03:23 | Emergency Room Report ---
History of Present Illness General Chief Complaint: Abdominal Pain Source: Patient Present Illness HPI 24-year-old female presents ED for evaluation. Complaining of right ear pain. Also complaining of abdominal pain with nausea and vomiting. Pain is epigastric , burning, 6 out of 10, nonradiating. Notes history of gastritis. Denies fevers or chills. Denies cough. Denies sick contacts or recent travel. No other aggravating relieving factors. Denies any other associated symptoms Allergies: Coded Allergies: No Known Allergies (Unverified , 01/22/16) COVID-19 Screening Contact w/high risk pt: No Recent Travel to affected area: No Experienced COVID-19 symptoms?: No Patient History Past Medical History: psych hx Past Surgical History: none Pertinent Family History: none Social History: Denies: smoking, alcohol use, drug use Last Menstrual Period: 11/30/19 Now: No : 0 Para: 0 Immunizations: UTD Reviewed Nursing Documentation: PMH: Agreed; PSxH: Agreed Nursing Documentation-PMH Past Medical History: No History, Except For Hx Cardiac Problems: No Hx Cancer: No Hx Gastrointestinal Problems: No Hx Dialysis: No - KIDNEY STIONES History Of Psychiatric Problem: Yes - ANXIETY Hx Neurological Problems: No Review of Systems All Other Systems: negative except mentioned in HPI Physical Exam Vital Signs Date Time Temp Pulse Resp B/P (MAP) Pulse Ox O2 Delivery O2 Flow Rate FiO2 12/09/19 00:48 98.4 79 18 125/88 (100) 95 Room Air Sp02 EP Interpretation: reviewed, normal General Appearance: no apparent distress, alert, GCS 15, non-toxic Head: normocephalic, atraumatic Eyes: bilateral eye normal inspection, bilateral eye PERRL ENT: hearing grossly normal, normal pharynx, no angioedema, normal voice, other - R TM erythematous, poor light reflex Neck: full range of motion, supple/symm/no masses Respiratory: chest non-tender, lungs clear, normal breath sounds, speaking full sentences Cardiovascular #1: regular rate, rhythm, no edema Cardiovascular #2: 2+ carotid (R), 2+ carotid (L), 2+ radial (R), 2+ radial (L) , 2+ dorsalis pedis (R), 2+ dorsalis pedis (L) Gastrointestinal: normal bowel sounds, soft, non-distended, no guarding, no rebound, tenderness - epigastric Rectal: deferred Genitourinary: normal inspection, no CVA tenderness Musculoskeletal: back normal, normal range of motion, gait/station normal, non- tender Neurologic: alert, motor strength/tone normal, oriented x3, sensory intact, responsive, speech normal Psychiatric: judgement/insight normal, memory normal, mood/affect normal, no suicidal/homicidal ideation Reflexes: 3+ bicep (R), 3+ bicep (L), 3+ tricep (R), 3+ tricep (L), 3+ knee (R) , 3+ knee (L) Skin: no rash Lymphatic: no adenopathy Medical Decision Making Diagnostic Impression: Primary Impression: Gastritis Qualified Codes: K29.00 - Acute gastritis without bleeding Additional Impression: Otitis media Qualified Codes: H66.90 - Otitis media, unspecified, unspecified ear ER Course Hospital Course 24-year-old F presents to ED with epigastric pain with N/V. also c/o R ear pain differential diagnosis: gastritis, SBO, cholecystits Clinical course Patient placed on stretcher. Initial history physical exam reveals female in no acute distress. There is erythema and poorly light reflex in the right TM. No pharyngeal erythema. No lymphadenopathy. Lungs clear. Some mild epigastric pain. No guarding or rebound. Zofran, Pepcid, GI cocktail here. Vitals stable. Patient appears afebrile, nontoxic-appearing. Patient has no cough. No fever. No shortness of breath. I discussed findings with patient. Consideration of coronavirus pandemic I encourage patient to self isolate at home. We will discharge with antibiotics. Safe for discharge with close outpatient follow-up. I will provide referrals I feel this is a highly complex case requiring extensive working including EKG/ Rhythm strip, Xray/CT/US, Blood/urine lab work, repeat exams while in ED, and administration of strong opiates/narcotics for pain control, admission to hospital or close patient follow up. Diagnosis - gastritis, otitis media Stable and discharged to home with prescriptions for Amoxicillin, pepcid. Followup with PMD. Return to ED if symptoms recur or worsen Last Vital Signs Date Time Temp Pulse Resp B/P (MAP) Pulse Ox O2 Delivery O2 Flow Rate FiO2 12/09/19 01:50 98.4 75 18 122/79 98 Room Air Status: improved Disposition: HOME, SELF-CARE Condition: Stable Scripts Famotidine* (Pepcid 20mg tablet*) 20 Mg Tablet 20 MG ORAL DAILY, #30 TAB 0 Refills Prov: Papi Arias MD 12/09/19 Amoxicillin* (AMOXIL*) 500 Mg Capsule 500 MG ORAL THREE TIMES A DAY, #21 CAP Prov: Papi Arias MD 12/09/19 Referrals: [facility] Patient Instructions: Gastritis, Adult, [id number] Papi Arias MD Dec 09, 2019 03:23
== END 2019-12-09 01:50 | disposition home or self-care (01) ==
LOC: EMR 01:01
DX: H66.90 Otitis media, unspecified, unspecified ear (principal); K29.00 Acute gastritis without bleeding; F41.9 Anxiety disorder, unspecified
CPT/HCPCS: 99283

== ENCOUNTER 2020-02-25 02:20 | Emergency (ER) | payer MEDICAID, OTHER ==
[~2020-02-25] VITALS: Ht 165.1 cm; Wt 88.5 kg
[~2020-02-25 02:20] MED LIST changes: +FAMOTIDINE20 MG ORAL
--- NOTE | 2020-02-25 02:50 | Emergency Room Report ---
History of Present Illness General Chief Complaint: Abdominal Pain Source: Patient Present Illness HPI This is a 25-year-old female with no past medical history. She presents with complaint abdominal pain. Pain is localized to lower quadrant mostly in the left side. Onset for last 4 to 5 hours. She has similar pain about 2 weeks ago. Saw her cassandra consultant and had a pelvic exam and urine done. Culture was negative. She was told that she has a UTI and placed on Keflex. Symptoms improve until tonight. No fever chills. No nausea no vomiting. Pain is sharp in nature. 9 out of 10. Worse with movement. Worse with palpation. Better with rest. Allergies: Coded Allergies: No Known Allergies (Unverified , 01/22/16) COVID-19 Screening Contact w/high risk pt: No Recent Travel to affected area: No Experienced COVID-19 symptoms?: No COVID-19 Testing performed DOG GROOMER: No Patient History Past Medical History: see triage record, old chart reviewed Past Surgical History: none Pertinent Family History: none Social History: Denies: smoking Last Menstrual Period: 02/02/20 Now: No : 0 Para: 0 Immunizations: other Reviewed Nursing Documentation: PMH: Agreed; PSxH: Agreed Nursing Documentation-PMH Hx Cardiac Problems: No Hx Cancer: No Hx Gastrointestinal Problems: No Hx Dialysis: No - kidney stones Hx Neurological Problems: No Review of Systems Eye: Denies: eye pain, blurred vision ENT: Denies: ear pain, nose congestion, throat swelling Respiratory: Denies: cough, shortness of breath Cardiovascular: Denies: chest pain, palpitations Gastrointestinal: Reports: abdominal pain; Denies: diarrhea, nausea, vomiting Musculoskeletal: Denies: back pain, joint pain Skin: Denies: rash Neurological: Denies: headache, numbness Endocrine: Denies: increased thirst, increased urine Hematologic/Lymphatic: Denies: easy bruising All Other Systems: negative except mentioned in HPI Physical Exam Vital Signs Date Time Temp Pulse Resp B/P (MAP) Pulse Ox O2 Delivery O2 Flow Rate FiO2 02/25/20 02:32 98.1 78 18 111/76 (88) 96 Room Air Vitals normal Sp02 EP Interpretation: reviewed, normal General Appearance: well appearing, no apparent distress, alert Head: normocephalic, atraumatic Eyes: bilateral eye PERRL, bilateral eye EOMI ENT: hearing grossly normal, normal pharynx Neck: full range of motion, supple, no meningismus Respiratory: chest non-tender, lungs clear, normal breath sounds Cardiovascular #1: regular rate, rhythm, no murmur Gastrointestinal: normal bowel sounds, no mass, no organomegaly, no bruit, non- distended, tenderness - Left lower quadrant tenderness Musculoskeletal: back normal, normal range of motion, gait/station normal Psychiatric: mood/affect normal Medical Decision Making Diagnostic Impression: Primary Impression: Abdominal pain Qualified Codes: R10.30 - Lower abdominal pain, unspecified ER Course Patient presents with abdominal pain. No evidence of obstruction or acute abdomen. No evidence of any infection or torsion. She is pain-free now. Will discharge home. CT/MRI/US Diagnostic Results CT/MRI/US Diagnostic Results : Imaging Test Ordered: CT abdomen pelvis Impression Neg per radiologist. Last Vital Signs Date Time Temp Pulse Resp B/P (MAP) Pulse Ox O2 Delivery O2 Flow Rate FiO2 02/25/20 02:32 98.1 78 18 111/76 (88) 96 Room Air Status: improved Disposition: HOME, SELF-CARE Condition: Stable Scripts Ibuprofen* (MOTRIN*) 600 Mg Tablet 600 MG ORAL Q6H PRN for For Pain, #30 TAB 0 Refills Prov: Tree Galdamez MD 02/25/20 Patient Instructions: Abdominal Pain, Adult Additional Instructions: Follow-up with your doctor in 7 days. Return if worse. Tree Galdamez MD Feb 25, 2020 02:50
[2020-02-25 02:54] LABS: APPEARANCE,URINE CLEAR; BILIRUBIN, URINE NEGATIVE (NEGATIVE); GLUCOSE, URINE (UA) NEGATIVE (NEGATIVE); KETONES,URINE NEGATIVE (NEGATIVE); LEUKOCYTE ESTERASE ,URINE NEGATIVE (NEGATIVE); NITRITE,URINE NEGATIVE (NEGATIVE); PH,URINE 5 (4.5-8.0); PROTEIN,URINE NEGATIVE (NEGATIVE); UROBILINOGEN,URINE NORMAL MG/DL (0.0-1.0)
[2020-02-25] MEDS ORDERED: Ketorolac 30mg Inj IV ONE (03:00)
[2020-02-25 03:03] LABS: COLOR,URINE YELLOW
[2020-02-25 03:10] LABS: BASOPHILS % (AUTO) 1.2 % (0.0-2.0); EOSINOPHILS % (AUTO) 1.8 % (0.0-3.0); HEMATOCRIT 39.9 % (37.0-47.0); MEAN CORPUSCULAR VOLUME 93 FL (80-99); MONOCYTES % (AUTO) 8.6 % (1.0-10.0); NEUTROPHILS % (AUTO) 59.5 % (45.0-75.0); PLATELET COUNT 368 K/UL (150-450); RED CELL DISTRIBUTION WIDTH 12.2 % (11.6-14.8)
[2020-02-25 03:14] VITALS: BP 116/72
[2020-02-25 03:18] LABS: ANION GAP 8 mmol/L (5-15); BLOOD UREA NITROGEN 13 mg/dL (7-18); CALCIUM 9.1 MG/DL (8.5-10.1); CARBON DIOXIDE 28 MMOL/L (21-32); CHLORIDE 104 MMOL/L (98-107); POTASSIUM 3.5 MMOL/L (3.5-5.1); SODIUM 140 MMOL/L (136-145)
[2020-02-25 04:00] VITALS: BP 121/68
--- NOTE | 2020-02-25 04:14 | Diagnostic Imaging Report ---
EXAM: CT Abdomen and Pelvis Without Intravenous Contrast CLINICAL HISTORY: ABD PAIN TECHNIQUE: Axial computed tomography images of the abdomen and pelvis without intravenous contrast. CTDI is 10.90 mGy and DLP is 597.50 mGy-cm. One or more of the following dose reduction techniques were used: automated exposure control, adjustment of the mA and/or kV according to patient size, use of iterative reconstruction technique. COMPARISON: No relevant prior studies available. FINDINGS: Lung bases: Unremarkable. No mass. No consolidation. ABDOMEN: Liver: Unremarkable. Gallbladder and bile ducts: Unremarkable. No calcified stones. No ductal dilation. Pancreas: Unremarkable. No ductal dilation. Spleen: Unremarkable. No splenomegaly. Adrenals: Unremarkable. No mass. Kidneys and ureters: Unremarkable. No obstructing stones. No hydronephrosis. Stomach and bowel: Unremarkable. No obstruction. No mucosal thickening. PELVIS: Appendix: No findings to suggest acute appendicitis. Bladder: Unremarkable. No stones. Reproductive: Unremarkable as visualized. ABDOMEN and PELVIS: Intraperitoneal space: Unremarkable. No free air. No significant fluid collection. Bones/joints: No acute fracture. No dislocation. Soft tissues: Unremarkable. Vasculature: Unremarkable. No abdominal aortic aneurysm. Lymph nodes: Unremarkable. No enlarged lymph nodes. IMPRESSION: No small bowel obstruction or acute diverticulitis. Normal appendix. No nephrolithiasis or hydronephrosis. No obstructive uropathy.
[2020-02-25] MEDS ORDERED: IBUPROFEN600 M1 ORAL (04:34)
[2020-02-25 04:40] VITALS: BP 121/68
== END 2020-02-25 04:40 | disposition home or self-care (01) ==
LOC: EMR 02:49
DX: R10.30 Lower abdominal pain, unspecified (principal)
CPT/HCPCS: 36415; 74176; 80048; 81003; 81025; 85025; 96361; 96374; J1885; J7030; Z7502; 99284

== ENCOUNTER 2020-08-10 22:20 | Emergency (ER) | payer MEDICAID ==
[~2020-08-10] VITALS: Ht 165.1 cm; Wt 81.6 kg
[~2020-08-10 22:20] MED LIST changes: +IBUPROFEN600 M1 ORAL
[2020-08-10 23:00] VITALS: BP 116/77
[2020-08-10] MEDS ORDERED: DiphenhydrAMINE 50mg/ml Inj IVP ONE (23:00)
[2020-08-10] MEDS ORDERED: Metoclopramide 10mg/2ml Inj IVP ONE (23:00)
[2020-08-10] MEDS ORDERED: Morphine Sulfate 4mg/ml Inj (IV USE ONLY) IVP ONE (23:00)
--- NOTE | 2020-08-10 23:00 | NUR ---
ED Nurse Note: Patient walked into ED for c/o RLQ ab pain onset this morning. Patient also reports vomiting with nausea. She is breathing normal and unlabored. AAOX4. She states the pain is sharp in nature and nonradiating.
--- NOTE | 2020-08-10 23:09 | Emergency Room Report ---
History of Present Illness General Chief Complaint: Abdominal Pain Source: Patient Present Illness HPI Patient started having right lower quadrant pain that began this morning. It has been constant and gradually increasing. At this time it is 9/10. Does not radiate. She had one episode of vomiting with some nausea. Her last menstruation was August 02 and normal for her. She does not believe she is at this time. She denies dysuria and vaginal discharge. She been moving her bowels normally. She says she had some pain similar to this a month ago that lasted a short period of time and went away on its own. No fevers, chills, sore throat, chest pain, palpitations, shortness of breath, joint pain, rashes, depression, anxiety, visual changes, dizziness, headache. Allergies: Coded Allergies: No Known Allergies (Unverified , 01/22/16) COVID-19 Screening Contact w/high risk pt: No Recent Travel to affected area: No Experienced COVID-19 symptoms?: No COVID-19 Testing performed RETURN TO VENDOR: Yes - 08/03 COVID-19 Screening: Negative COVID-19 COVID-19 Testing Source: [facility] Patient History Social History: Denies: smoking Social History Narrative Unemployed at this time Last Menstrual Period: 08/02/20 Now: No : 0 Reviewed Nursing Documentation: PMH: Agreed; PSxH: Agreed Nursing Documentation-PMH Hx Cardiac Problems: No - KIDNEY STONES Hx Cancer: No Hx Gastrointestinal Problems: No Hx Dialysis: No - kidney stones Hx Neurological Problems: No Review of Systems All Other Systems: negative except mentioned in HPI Physical Exam Vital Signs Date Time Temp Pulse Resp B/P (MAP) Pulse Ox O2 Delivery O2 Flow Rate FiO2 08/10/20 22:48 97.7 92 18 116/77 (90) 95 Room Air Sp02 EP Interpretation: reviewed, normal General Appearance: well appearing, no apparent distress, GCS 15 Head: normocephalic Eyes: bilateral eye normal inspection, bilateral eye PERRL, bilateral eye EOMI ENT: other - Wearing a mask Neck: supple Respiratory: lungs clear, normal breath sounds Cardiovascular #1: regular rate, rhythm Cardiovascular #2: 2+ radial (R) Gastrointestinal: normal inspection, normal bowel sounds, no mass, non- distended, no guarding, no rebound, tenderness - Right lower quadrant Genitourinary: no CVA tenderness Musculoskeletal: back normal, normal range of motion, gait/station normal Neurologic: alert, oriented x3, grossly normal Psychiatric: mood/affect normal Skin: no rash, warm/dry Medical Decision Making Diagnostic Impression: Primary Impression: Abdominal pain Qualified Codes: R10.31 - Right lower quadrant pain ER Course Patient presents with right lower quadrant pain that is constant and worsening. Differential includes ruptured ovarian cyst, appendicitis, urinary tract infection ectopic , renal stone amongst others. Patient evaluated with CT of the abdomen and labs. Patient treated with IV hydration and analgesia. White count normal. CMP unremarkable. Urinalysis clear. CT of the abdomen essentially normal. Pain resolved. Discussed findings with patient and possible etiologies of the pain. Also discussed outpatient observation. Patient stable for outpatient observation and treatment. Laboratory Tests Test 08/10/20 22:59 08/10/20 23:10 Urine Color Yellow Urine Appearance Clear Urine pH 5 (4.5-8.0) Urine Specific [place] 1.025 (1.005-1.035) Urine Protein 1+ (NEGATIVE) H Urine Glucose (UA) Negative (NEGATIVE) Urine Ketones 1+ (NEGATIVE) H Urine Blood 3+ (NEGATIVE) H Urine Nitrite Negative (NEGATIVE) Urine Bilirubin Negative (NEGATIVE) Urine Urobilinogen Normal MG/DL (0.0-1.0) Urine Leukocyte Esterase 1+ (NEGATIVE) H Urine RBC 5-10 /HPF (0 - 2) H Urine WBC 2-4 /HPF (0 - 2) Urine Squamous Epithelial Cells Many /LPF (NONE/OCC) H Urine Bacteria Few /HPF (NONE) Urine HCG, Qualitative Negative (NEGATIVE) White Blood Count 9.8 K/UL (4.8-10.8) Red Blood Count 4.65 M/UL (4.20-5.40) Hemoglobin 13.7 G/DL (12.0-16.0) Hematocrit 40.1 % (37.0-47.0) Mean Corpuscular Volume 86 FL (80-99) Mean Corpuscular Hemoglobin 29.4 PG (27.0-31.0) Mean Corpuscular Hemoglobin Concent 34.2 G/DL (32.0-36.0) Red Cell Distribution Width 11.6 % (11.6-14.8) Platelet Count 397 K/UL (150-450) Mean Platelet Volume 5.7 FL (6.5-10.1) L Neutrophils (%) (Auto) 64.8 % (45.0-75.0) Lymphocytes (%) (Auto) 25.7 % (20.0-45.0) Monocytes (%) (Auto) 7.5 % (1.0-10.0) Eosinophils (%) (Auto) 1.2 % (0.0-3.0) Basophils (%) (Auto) 0.9 % (0.0-2.0) Prothrombin Time 10.8 SEC (9.30-11.50) Prothrombin Time INR 1.0 (0.9-1.1) Activated Partial Thromboplast Time 30 SEC (23-33) Sodium Level 139 MMOL/L (136-145) Potassium Level 4.1 MMOL/L (3.5-5.1) Chloride Level 104 MMOL/L (98-107) Carbon Dioxide Level 28 MMOL/L (21-32) Anion Gap 7 mmol/L (5-15) Blood Urea Nitrogen 13 mg/dL (7-18) Creatinine 0.9 MG/DL (0.55-1.30) Estimated Glomerular Filtration Rate > 60 mL/min (>60) Glucose Level 86 MG/DL (74-106) Calcium Level 9.1 MG/DL (8.5-10.1) Total Bilirubin 0.3 MG/DL (0.2-1.0) Aspartate Amino Transferase (AST) 18 U/L (15-37) Alanine Aminotransferase (ALT) 21 U/L (12-78) Alkaline Phosphatase 95 U/L (46-116) Total Protein 7.8 G/DL (6.4-8.2) Albumin 4.2 G/DL (3.4-5.0) Globulin 3.6 g/dL Albumin/Globulin Ratio 1.2 (1.0-2.7) Lipase 151 U/L (73-393) CT/MRI/US Diagnostic Results CT/MRI/US Diagnostic Results : Imaging Test Ordered: Abdomen and pelvis Impression 1. No evidence for hydronephrosis or perinephric stranding. The ureters are not well-visualized. No definite evidence for renal or ureteral stone. 2. Evaluation of the stomach is limited secondary to poor distention. Some mild wall thickening of the stomach cannot be excluded. Last Vital Signs Date Time Temp Pulse Resp B/P (MAP) Pulse Ox O2 Delivery O2 Flow Rate FiO2 08/11/20 01:00 97.7 85 18 115/85 98 Room Air Status: improved Disposition: HOME, SELF-CARE Condition: Improved Scripts Acetaminophen (Tylenol) 325 Mg Tablet 650 MG ORAL Q6H PRN for Prn Pain/Headache/Temp > 101, #20 TAB 0 Refills Prov: Merlin Solorzano MD 08/11/20 Ibuprofen* (MOTRIN*) 600 Mg Tablet 600 MG ORAL Q6H PRN for FOR PAIN, #16 TAB 0 Refills Prov: Merlin Solorzano MD 08/11/20 Referrals: [facility],REFERRING (PCP) Merlin Solorzano MD Aug 10, 2020 23:09
[2020-08-10 23:23] LABS: APPEARANCE,URINE CLEAR; BILIRUBIN, URINE NEGATIVE (NEGATIVE); GLUCOSE, URINE (UA) NEGATIVE (NEGATIVE); KETONES,URINE 1+ (NEGATIVE); LEUKOCYTE ESTERASE ,URINE 1+ (NEGATIVE); NITRITE,URINE NEGATIVE (NEGATIVE); PH,URINE 5 (4.5-8.0); PROTEIN,URINE 1+ (NEGATIVE); UROBILINOGEN,URINE NORMAL MG/DL (0.0-1.0)
[2020-08-10 23:24] LABS: BASOPHILS % (AUTO) 0.9 % (0.0-2.0); EOSINOPHILS % (AUTO) 1.2 % (0.0-3.0); HEMATOCRIT 40.1 % (37.0-47.0); HEMOGLOBIN 13.7 G/DL (12.0-16.0); LYMPHOCYTES % (AUTO) 25.7 % (20.0-45.0); MEAN CORPUSCULAR VOLUME 86 FL (80-99); MONOCYTES % (AUTO) 7.5 % (1.0-10.0); NEUTROPHILS % (AUTO) 64.8 % (45.0-75.0); PLATELET COUNT 397 K/UL (150-450); RED BLOOD COUNT 4.65 M/UL (4.20-5.40); RED CELL DISTRIBUTION WIDTH 11.6 % (11.6-14.8); WHITE BLOOD COUNT 9.8 K/UL (4.8-10.8)
[2020-08-10 23:28] LABS: COLOR,URINE YELLOW
[2020-08-10 23:35] LABS: ANION GAP 7 mmol/L (5-15); BLOOD UREA NITROGEN 13 mg/dL (7-18); CALCIUM 9.1 MG/DL (8.5-10.1); CARBON DIOXIDE 28 MMOL/L (21-32); CHLORIDE 104 MMOL/L (98-107); CREATININE 0.9 MG/DL (0.55-1.30); POTASSIUM 4.1 MMOL/L (3.5-5.1); SODIUM 139 MMOL/L (136-145)
[2020-08-10 23:39] LABS: ALANINE AMINOTRANSFERASE 21 U/L (12-78); ALBUMIN 4.2 G/DL (3.4-5.0); ALBUMIN/GLOBULIN RATIO 1.2 (1.0-2.7); ALKALINE PHOSPHATASE 95 U/L (46-116); ASPARTATE AMINO TRANSFERASE 18 U/L (15-37); BILIRUBIN,TOTAL 0.3 MG/DL (0.2-1.0)
--- NOTE | 2020-08-11 | NUR ---
ED Nurse Note: Patient states her pain has resolved. She has not had an episode of vomiting here in the ED. She states she feels better at this time.
--- NOTE | 2020-08-11 00:31 | Diagnostic Imaging Report ---
EXAM: CT Abdomen and Pelvis Without Intravenous Contrast CLINICAL HISTORY: Right lower quadrant pain. TECHNIQUE: Axial computed tomography images of the abdomen and pelvis without intravenous contrast. CTDI is 8.00 mGy and DLP is 464.90 mGy-cm. One or more of the following dose reduction techniques were used: automated exposure control, adjustment of the mA and/or kV according to patient size, use of iterative reconstruction technique. Coronal and sagittal reformatted images were created and reviewed. COMPARISON: 02/25/20. FINDINGS: Lung bases: The lung bases are unremarkable. ABDOMEN: Liver: The liver is grossly unremarkable for a noncontrast CT. Gallbladder and bile ducts: The gallbladder is grossly unremarkable for a noncontrast CT. No calcified stones. No ductal dilation. Pancreas: The pancreas is grossly unremarkable for a noncontrast CT. No ductal dilation. Spleen: The spleen is grossly unremarkable for a noncontrast CT. Adrenals: The adrenals are grossly unremarkable for a noncontrast CT. Kidneys and ureters: No evidence for hydronephrosis or perinephric stranding. The ureters are not well-visualized. No definite evidence for renal or ureteral stone. Stomach and bowel: Evaluation of the stomach is limited secondary to poor distention. Some mild wall thickening of the stomach cannot be excluded. No evidence for bowel related inflammatory changes. No evidence for significant bowel loop dilation to suggest an obstructive process. PELVIS: Appendix: The appendix is normal. Bladder: The bladder is grossly unremarkable. No stones. Reproductive: The uterus is grossly unremarkable. ABDOMEN and PELVIS: Intraperitoneal space: No free intraperitoneal fluid or free intraperitoneal gas. Bones/joints: No acute fracture. No dislocation. Soft tissues: Unremarkable. Vasculature: Unremarkable. No abdominal aortic aneurysm. Lymph nodes: Unremarkable. No enlarged lymph nodes. IMPRESSION: 1. No evidence for hydronephrosis or perinephric stranding. The ureters are not well-visualized. No definite evidence for renal or ureteral stone. 2. Evaluation of the stomach is limited secondary to poor distention. Some mild wall thickening of the stomach cannot be excluded.
[2020-08-11] MEDS ORDERED: TYLENOL325 MG ORAL (00:52)
[2020-08-11] MEDS ORDERED: IBUPROFEN600 M1 ORAL (00:52)
[2020-08-11 01:00] VITALS: BP 115/85
== END 2020-08-11 01:00 | disposition home or self-care (01) ==
LOC: EMR 22:59
DX: R10.31 Right lower quadrant pain (principal); Z87.442 Personal history of urinary calculi
CPT/HCPCS: 36415; 74176; 80053; 81003; 81025; 83690; 85025; 85610; 85730; 96361; 96374; 96375; J1200; J2270; J2765; J7030; Z7502; 99284

== ENCOUNTER 2020-08-14 04:20 | Emergency (ER) | payer MEDICAID ==
[~2020-08-14] VITALS: Ht 165.1 cm; Wt 81.6 kg
[~2020-08-14 04:20] MED LIST changes: +TYLENOL325 MG ORAL
--- NOTE | 2020-08-14 04:22 | NUR ---
ED Nurse Note: pt walked in the ED due to stomach on the RLQ, on set 30 min. Pt is A&ox4, on monitor; vs are stable.
--- NOTE | 2020-08-14 04:43 | Emergency Room Report ---
History of Present Illness General Chief Complaint: Abdominal Pain Source: Patient, Medical Record (Tree Galdamez MD) Present Illness HPI This a 25-year-old female with no past medical history. She presents with chief complaint of right lower quadrant pain. Onset for 2 days now. She was here on August 10 for the same thing. Labs and CT scan was normal. No fever chills. No nausea or vomiting. No diarrhea. No anorexia. Pain is localized to the right lower quadrant. 10 out of 10. No radiation. Had similar pain last month but did not go to the hospital. She is near midcycle. (Tree Galdamez MD) Allergies: Coded Allergies: No Known Allergies (Unverified , 01/22/16) COVID-19 Screening Contact w/high risk pt: No Recent Travel to affected area: No Experienced COVID-19 symptoms?: No COVID-19 Testing performed [employer]: Yes - 08/09/20 COVID-19 Screening: Negative COVID-19 COVID-19 Testing Source: [facility] (Tree Galdamez MD) Patient History Past Medical History: none, see triage record, old chart reviewed Past Surgical History: none Pertinent Family History: none Social History: Denies: smoking Last Menstrual Period: july 2020 Now: No Immunizations: other Reviewed Nursing Documentation: PMH: Agreed; PSxH: Agreed (Tree Galdamez MD) Nursing Documentation-PMH Past Medical History: No History, Except For Hx Cardiac Problems: No - KIDNEY STONES Hx Cancer: No Hx Gastrointestinal Problems: No Hx Dialysis: No - kidney stones Hx Neurological Problems: No (Tree Galdamez MD) Review of Systems Eye: Denies: eye pain, blurred vision ENT: Denies: ear pain, nose congestion, throat swelling Respiratory: Denies: cough, shortness of breath Cardiovascular: Denies: chest pain, palpitations Gastrointestinal: Reports: abdominal pain; Denies: diarrhea, nausea, vomiting Musculoskeletal: Denies: back pain, joint pain Skin: Denies: rash Neurological: Denies: headache, numbness Endocrine: Denies: increased thirst, increased urine Hematologic/Lymphatic: Denies: easy bruising All Other Systems: negative except mentioned in HPI (Tree Galdamez MD) Physical Exam Vital Signs Date Time Temp Pulse Resp B/P (MAP) Pulse Ox O2 Delivery O2 Flow Rate FiO2 12/6/20 04:20 97.0 109 18 127/83 (98) 95 Room Air Vitals normal Sp02 EP Interpretation: reviewed, normal General Appearance: well appearing, no apparent distress, alert Head: normocephalic, atraumatic Eyes: bilateral eye PERRL, bilateral eye EOMI ENT: hearing grossly normal, normal pharynx Neck: full range of motion, supple, no meningismus Respiratory: chest non-tender, lungs clear, normal breath sounds Cardiovascular #1: regular rate, rhythm, no murmur Gastrointestinal: normal bowel sounds, non tender, no mass, no organomegaly, no bruit, non-distended Musculoskeletal: back normal, normal range of motion, gait/station normal Psychiatric: anxious (Tree Galdamez MD) Medical Decision Making Diagnostic Impression: Primary Impression: Abdominal pain Qualified Codes: R10.31 - Right lower quadrant pain Additional Impression: UTI (urinary tract infection) Qualified Codes: N30.00 - Acute cystitis without hematuria ER Course This patient presents with right lower quadrant pain. She had a CT scan done on August 10 that was negative. Because of the continued pain, I will repeat a CT scan to see if there is any appendicitis. This may be also a ruptured ovarian cyst. Labs show increasing white count. If CT scan is negative, can be discharged home. I will sign this patient out to Dr. Solorzano for final disposition. (Tree Galdamez MD) ER Course Please see above note. She says the pain is better after the morphine. She states it is now down to 1/10. Awaiting CT scan. 620 CT normal. Still with right lower quadrant guarding no rebound. Pelvic ultrasound ordered 645 Patient still with guarding and significant pain. No rebound. Morphine repeated. Ultrasound with follicular cysts but otherwise negative. Unknown process but still significant pain needs observation. Discussed with Dr. Shabazz at [facility]. Transfer for observation. Laboratory Tests Test 08/14/20 04:50 White Blood Count 13.9 K/UL (4.8-10.8) H Red Blood Count 4.71 M/UL (4.20-5.40) Hemoglobin 14.1 G/DL (12.0-16.0) Hematocrit 38.9 % (37.0-47.0) Mean Corpuscular Volume 82 FL (80-99) Mean Corpuscular Hemoglobin 29.9 PG (27.0-31.0) Mean Corpuscular Hemoglobin Concent 36.2 G/DL (32.0-36.0) H Red Cell Distribution Width 13.5 % (11.6-14.8) Platelet Count 409 K/UL (150-450) Mean Platelet Volume 5.9 FL (6.5-10.1) L Neutrophils (%) (Auto) 69.9 % (45.0-75.0) Lymphocytes (%) (Auto) 20.5 % (20.0-45.0) Monocytes (%) (Auto) 7.7 % (1.0-10.0) Eosinophils (%) (Auto) 0.9 % (0.0-3.0) Basophils (%) (Auto) 1.0 % (0.0-2.0) Urine Color Pale yellow Urine Appearance Cloudy Urine pH 5 (4.5-8.0) Urine Specific [place] 1.025 (1.005-1.035) Urine Protein 1+ (NEGATIVE) H Urine Glucose (UA) Negative (NEGATIVE) Urine Ketones 1+ (NEGATIVE) H Urine Blood 4+ (NEGATIVE) H Urine Nitrite Negative (NEGATIVE) Urine Bilirubin Negative (NEGATIVE) Urine Urobilinogen Normal MG/DL (0.0-1.0) Urine Leukocyte Esterase 1+ (NEGATIVE) H Urine RBC 2-4 /HPF (0 - 2) H Urine WBC 0-2 /HPF (0 - 2) Urine Squamous Epithelial Cells Many /LPF (NONE/OCC) H Urine Bacteria Moderate /HPF (NONE) H Urine HCG, Qualitative Negative (NEGATIVE) Sodium Level 140 MMOL/L (136-145) Potassium Level 3.6 MMOL/L (3.5-5.1) Chloride Level 104 MMOL/L (98-107) Carbon Dioxide Level 27 MMOL/L (21-32) Anion Gap 9 mmol/L (5-15) Blood Urea Nitrogen 12 mg/dL (7-18) Creatinine 0.9 MG/DL (0.55-1.30) Estimated Glomerular Filtration Rate > 60 mL/min (>60) Glucose Level 97 MG/DL (74-106) Calcium Level 9.3 MG/DL (8.5-10.1) (Merlin Solorzano MD) CT/MRI/US Diagnostic Results CT/MRI/US Diagnostic Results #1: Imaging Test Ordered: Abdomen and pelvis Impression Normal abdomen and pelvis CT. CT/MRI/US Diagnostic Results #2: Imaging Test Ordered: Pelvic ultrasound Impression Uterus/cervix: Unremarkable measuring 7.3 cm.. Normal endometrial stripe thickness measuring 9 mm. No myometrial mass. Right ovary: Unremarkable measuring 4.6 x 1.9 x 3.1 cm with several follicles, the largest measuring 1.7 cm in diameter. No mass. Normal blood flow. Left ovary: Unremarkable measuring 2.3 x 1.5 x 1.4 cm. No mass. Normal blood flow. Free fluid: No free fluid. Bladder: Unremarkable as visualized. Wall is normal thickness for degree of distention. IMPRESSION: Normal pelvic ultrasound. (Merlin Solorzano MD) Last Vital Signs Date Time Temp Pulse Resp B/P (MAP) Pulse Ox O2 Delivery O2 Flow Rate FiO2 08/14/20 04:20 97.0 109 18 127/83 (98) 95 Room Air Status: improved (Tree Galdamez MD) Last Vital Signs Date Time Temp Pulse Resp B/P (MAP) Pulse Ox O2 Delivery O2 Flow Rate FiO2 08/14/20 11:56 98.2 77 18 140/77 99 Room Air Status: improved (Merlin Solorzano MD) Disposition: SHORT-TERM HOSP Condition: Stable Referrals: [facility],REFERR[facility] (PCP) Tree Galdamez MD Aug 14, 2020 04:43 Merlin Solorzano MD Aug 14, 2020 06:12
[2020-08-14] MEDS ORDERED: Ketorolac 30mg Inj IV ONE (04:45)
--- NOTE | 2020-08-14 04:45 | NUR ---
ED Nurse Note: Iv intiated, blood and urine sent to the lab.
[2020-08-14 04:50] VITALS: BP 105/68
[2020-08-14 05:01] LABS: EOSINOPHILS % (AUTO) 0.9 % (0.0-3.0); HEMATOCRIT 38.9 % (37.0-47.0); HEMOGLOBIN 14.1 G/DL (12.0-16.0); LYMPHOCYTES % (AUTO) 20.5 % (20.0-45.0); MEAN CORPUSCULAR VOLUME 82 FL (80-99); MONOCYTES % (AUTO) 7.7 % (1.0-10.0); NEUTROPHILS % (AUTO) 69.9 % (45.0-75.0); PLATELET COUNT 409 K/UL (150-450); RED BLOOD COUNT 4.71 M/UL (4.20-5.40); RED CELL DISTRIBUTION WIDTH 13.5 % (11.6-14.8); WHITE BLOOD COUNT 13.9 K/UL (4.8-10.8)
[2020-08-14 05:06] LABS: APPEARANCE,URINE CLOUDY; BILIRUBIN, URINE NEGATIVE (NEGATIVE); GLUCOSE, URINE (UA) NEGATIVE (NEGATIVE); KETONES,URINE 1+ (NEGATIVE); LEUKOCYTE ESTERASE ,URINE 1+ (NEGATIVE); NITRITE,URINE NEGATIVE (NEGATIVE); PH,URINE 5 (4.5-8.0); PROTEIN,URINE 1+ (NEGATIVE); UROBILINOGEN,URINE NORMAL MG/DL (0.0-1.0)
[2020-08-14 05:09] LABS: COLOR,URINE PALE YELLOW
[2020-08-14 05:16] LABS: ANION GAP 9 mmol/L (5-15); BLOOD UREA NITROGEN 12 mg/dL (7-18); CALCIUM 9.3 MG/DL (8.5-10.1); CARBON DIOXIDE 27 MMOL/L (21-32); CHLORIDE 104 MMOL/L (98-107); CREATININE 0.9 MG/DL (0.55-1.30); POTASSIUM 3.6 MMOL/L (3.5-5.1); SODIUM 140 MMOL/L (136-145)
[2020-08-14] MEDS ORDERED: Morphine Sulfate 4mg/ml Inj (IV USE ONLY) IVP ONE ×2 (05:30→09:15)
[2020-08-14] MEDS ORDERED: Omnipaque-300 100ml vial INJ PRN (05:30)
[2020-08-14] MEDS ORDERED: cefTRIAXone 1 GM in NS 55 ML IVPB ONE (05:30)
--- NOTE | 2020-08-14 05:49 | NUR ---
ED Nurse Note: pt left for CT scan with a trang.
--- NOTE | 2020-08-14 06:15 | NUR ---
ED Nurse Note: Pt is back from Ct scan
--- NOTE | 2020-08-14 06:41 | Diagnostic Imaging Report ---
EXAM: CT Abdomen and Pelvis With Intravenous Contrast CLINICAL HISTORY: ABD PAIN TECHNIQUE: Axial computed tomography images of the abdomen and pelvis with intravenous contrast. CTDI is 7.30 mGy and DLP is 391.80 mGy-cm. One or more of the following dose reduction techniques were used: automated exposure control, adjustment of the mA and/or kV according to patient size, use of iterative reconstruction technique. COMPARISON: 08/10/20 FINDINGS: Lung bases: Unremarkable. No mass. No consolidation. ABDOMEN: Liver: Unremarkable. No mass. Gallbladder and bile ducts: Unremarkable. No calcified stones. No ductal dilation. Pancreas: Unremarkable. No mass. No ductal dilation. Spleen: Unremarkable. No splenomegaly. Adrenals: Unremarkable. No mass. Kidneys and ureters: Unremarkable. No solid mass. No hydronephrosis. Stomach and bowel: Unremarkable. No obstruction. No mucosal thickening. PELVIS: Appendix: No findings to suggest acute appendicitis. Bladder: Unremarkable. No mass. Reproductive: Unremarkable as visualized. ABDOMEN and PELVIS: Intraperitoneal space: Unremarkable. No free air. No significant fluid collection. Bones/joints: No acute fracture. No dislocation. Soft tissues: Unremarkable. Vasculature: Unremarkable. No abdominal aortic aneurysm. Lymph nodes: Unremarkable. No enlarged lymph nodes. IMPRESSION: Normal abdomen and pelvis CT.
--- NOTE | 2020-08-14 07:03 | NUR ---
ED Nurse Note: Received report from RUTH Huang. Patient resting in the bed, VSS at this time, NAD noted.
--- NOTE | 2020-08-14 07:03 | NUR ---
ED Nurse Note: Report givem to RUTH Hernandez
--- NOTE | 2020-08-14 08:34 | NUR ---
ED Nurse Note: US by bed side
--- NOTE | 2020-08-14 09:45 | Diagnostic Imaging Report ---
EXAM: US Pelvis Transabdominal, Complete CLINICAL HISTORY: ABD PAIN TECHNIQUE: Real-time complete transabdominal pelvic ultrasound with image documentation. COMPARISON: CT abdomen pelvis performed the same day. FINDINGS: Uterus/cervix: Unremarkable measuring 7.3 cm.. Normal endometrial stripe thickness measuring 9 mm. No myometrial mass. Right ovary: Unremarkable measuring 4.6 x 1.9 x 3.1 cm with several follicles, the largest measuring 1.7 cm in diameter. No mass. Normal blood flow. Left ovary: Unremarkable measuring 2.3 x 1.5 x 1.4 cm. No mass. Normal blood flow. Free fluid: No free fluid. Bladder: Unremarkable as visualized. Wall is normal thickness for degree of distention. IMPRESSION: Normal pelvic ultrasound.
[2020-08-14 10:04] VITALS: BP 112/74
[2020-08-14 11:56] VITALS: BP 140/77
--- NOTE | 2020-08-14 11:56 | NUR ---
ED Nurse Note: Patient was transfered to [facility] due to RLQ abdominal pain. Patient was transfered via [facility] transportation unit #[id number]. Patient AAOx4, VSS at this time. Patient took all belongings.
== END 2020-08-14 11:56 | disposition short-term general hospital (02) ==
LOC: EMR 04:39
DX: N30.00 Acute cystitis without hematuria (principal); Z87.442 Personal history of urinary calculi; N83.8 Other noninflammatory disorders of ovary, fallopian tube and broad ligament
CPT/HCPCS: 36415; 74177; 76830; 76856; 80048; 81003; 81025; 85025; 87086; 96361; 96365; 96375; 96376; J0696; J1885; J2270; J2405; J7030; Q9965; Z7502; 99284